=== PATIENT | female | born 1975 | race Caucasian/White ===

== ENCOUNTER 2017-03-12 09:06 | Emergency (ER) | payer OTHER, SELFPAY ==
[2017-03-12] MEDS ORDERED: Acetaminophen 500 MG TAB ONE (09:58)
== END 2017-03-12 10:00 | disposition home or self-care (01) ==
LOC: NAV ERS 09:06
DX: J11.1 Influenza due to unidentified influenza virus with other respiratory manifestations (principal); G89.29 Other chronic pain; G43.909 Migraine, unspecified, not intractable, without status migrainosus; K21.9 Gastro-esophageal reflux disease without esophagitis; I10 Essential (primary) hypertension; E66.9 Obesity, unspecified; J45.909 Unspecified asthma, uncomplicated; F32.9 Major depressive disorder, single episode, unspecified; F43.10 Post-traumatic stress disorder, unspecified; Z87.891 Personal history of nicotine dependence; Z79.899 Other long term (current) drug therapy
CPT/HCPCS: 99283

== ENCOUNTER 2021-02-09 14:42 | Emergency (ER) | payer OTHER, MEDICAID ==
[2021-02-09] MEDS ORDERED: Ketorolac Tromethamine 30 MG/ML VIAL ONE (15:44)
== END 2021-02-09 16:00 | disposition home or self-care (01) ==
LOC: NAV ERS 14:42
DX: S43.401A Unspecified sprain of right shoulder joint, initial encounter (principal); S00.83XA Contusion of other part of head, initial encounter; G62.9 Polyneuropathy, unspecified; K21.9 Gastro-esophageal reflux disease without esophagitis; I10 Essential (primary) hypertension; E66.9 Obesity, unspecified; J45.909 Unspecified asthma, uncomplicated; Z79.899 Other long term (current) drug therapy; Z79.891 Long term (current) use of opiate analgesic; Z87.891 Personal history of nicotine dependence; W01.0XXA Fall on same level from slipping, tripping and stumbling without subsequent striking against object, initial encounter
CPT/HCPCS: 70450; 96372; J1885